=== PATIENT | female | born 1960 | race Two or more races ===

== ENCOUNTER 2025-01-22 13:52 | Emergency (ER) | payer OTHER ==
[~2025-01-22] VITALS: Ht 167.6 cm; Wt 93.0 kg
[2025-01-22 15:04] VITALS: BP 109/75; O2SAT 96
[2025-01-22] MEDS ORDERED: SINGULAIR10 MG PO (15:06)
[2025-01-22] MEDS ORDERED: COZAAR50 MG (15:06)
[2025-01-22] MEDS ORDERED: SIMETHICONE80 MG PO (15:06)
[2025-01-22] MEDS ORDERED: LANTUS SOL100 UNIT/1 SQ (15:07)
[2025-01-22] MEDS ORDERED: SYNJARDY 12.5-1 EACH PO (15:08)
[2025-01-22] MEDS ORDERED: OZEMPIC0.25 MG/02 SUBCUTANEO (15:10)
[2025-01-22] MEDS ORDERED: SIMVASTATIN5 MG PO (15:11)
[2025-01-22] MEDS ORDERED: MONTELUKAST SODI4 M1 PO (15:11)
[2025-01-22] MEDS ORDERED: COZAAR50 MG PO (15:11)
[2025-01-22] MEDS ORDERED: LANTUS SOL100 UNIT/1 SUBCUTANEO (15:12)
[2025-01-22] MEDS ORDERED: FAMOtidine 10 MG/ML (4ML VIAL) IV ONE (16:30)
[2025-01-22] MEDS ORDERED: 0.9 % SODIUM CHLORIDE 1,000 ML IV ONE (16:30)
[2025-01-22] MEDS ORDERED: KETOROLAC TROMETHAMINE 30 MG VIAL IV ONE (16:30)
[2025-01-22 17:57] LABS: BASO % 0.3 % (0.1-1.2); EOS # 0.06 (0.04-0.54); EOS % 0.5 % (0.7-7.0); LYMPH # 1.42 (1.18-3.74); LYMPH % 12.3 % (19.3-53.1); MEAN PLATELET VOLUME 9.90 fl (9.4-12.4); MONO # 1.71 (0.24-0.82); NEUT # 8.32 (1.56-6.13); NEUT % 71.8 % (34.0-71.1); RED CELL DISTRIBUTION WIDTH 14.6 % (11.6-14.4)
[2025-01-22 18:10] LABS: MONO % 14.8 % (4.7-12.5)
[2025-01-22 18:16] LABS: URINE APPEARANCE Clear; URINE BILIRRUBIN Negative (NEGATIVE); URINE BLOOD Negative; URINE COLOR Yellow; URINE KETONE Trace (NEGATIVE); URINE LEUKOCYTE Negative; URINE NITRATE Negative; URINE PROTEIN 30 (NEGATIVE); URINE UROBILINOGEN 0.2 E.U./dl
[2025-01-22 18:19] LABS: INR 1.05
[2025-01-22 18:20] LABS: GLUCOSE FASTING 156.0 mg/dL (65-100); OSMOLALITY SERUM 280.0 MOSM/KG (275-295); URINE BACTERIA 566.3 uL (0.0-1933); URINE EPITHELIAL CELLS 29.6 uL (0.0-38.8); URINE RBC 24.3 uL (0.0-20.8); URINE WBC 19.0 uL (0.0-23.2)
[2025-01-22 18:22] LABS: ALT/SGPT 21.0 U/L (12-78); AST/SGOT 11.0 U/L (15-37); BUN CREA RATIO 16.0 (7.0-25.0); CREATININE SERUM 1.02 mg/dL (0.55-1.02); GFR 54.22
[2025-01-22 18:23] LABS: BILIRUBIN TOTAL 0.39 mg/dL (0.3-1.2); GLOBULINA 4.7 G/DL (2.4-3.5)
[2025-01-22 18:26] LABS: COVID-19 AG NEGATIVE (NEGATIVE)
[2025-01-22 18:53] LABS: FECAL LEUKOCYTES POSITIVE (NEGATIVE); ob POSITIVE (NEGATIVE)
[2025-01-22 18:57] LABS: URINE GLUCOSE >=1000 MG/DL (NEGATIVE)
[2025-01-22 18:58] LABS: TYPE CELLS SQUAMOUS; URINE CAST 0.73 uL (0.0-1.40); URINE MUCUS SCANT; URINE YEAST FEW /hpf
[2025-01-22] MEDS ORDERED: CIPROFLOXACIN IN 5 % DEXTROSE 400 MG/200 ML PIGGYBAG IV ONE (19:15)
[2025-01-22] MEDS ORDERED: METRONIDAZOLE/SODIUM CHLORIDE 500 MG/100 ML PIGGYBACK IV ONE (19:15)
[2025-01-22] MEDS ORDERED: CIPRO500 MG PO (20:58)
[2025-01-22] MEDS ORDERED: PROTONIX40 MG PO (20:58)
[2025-01-22] MEDS ORDERED: PROBIOTIC1 EAC2 PO (20:58)
[2025-01-22] MEDS ORDERED: LEVSIN/SL0.125 MG SL (20:58)
[2025-01-22] MEDS ORDERED: METRONIDAZOLE500 MG PO (20:58)
== END 2025-01-22 23:40 | disposition home or self-care (01) ==
LOC: ER 17:17
PROVIDERS: General Practice
DX: R10.9 Unspecified abdominal pain (principal); R19.7 Diarrhea, unspecified; K92.1 Melena; Z20.822 Contact with and (suspected) exposure to COVID-19; E11.9 Type 2 diabetes mellitus without complications; Z79.84 Long term (current) use of oral hypoglycemic drugs
CPT/HCPCS: 36415; 74177; 96365; 96366; 99284; J0744; J1885; J3490 ×2; J7030; Q9965